=== PATIENT | female | born 1980 | race Caucasian/White ===

== ENCOUNTER 2017-09-20 16:38 | Emergency (ER) | payer SELFPAY ==
[2017-09-20 16:54] VITALS: BP 108/66; PULSE 65; RESP 18; TEMP 98.3; O2SAT 100
--- NOTE | 2017-09-20 21:13 | PD ---
HPI Chief Complaint: Abdominal Pain Time Seen by Provider: 21:13 Travel History International Travel<30 days: No Contact w/Intl Traveler<30days: No Traveled to known affect area: No History of Present Illness HPI 37-year-old female presents emergency department for evaluation right lower abdominal pain. Patient states this woke her up 2 nights ago. It has been constant since then, she rates it a 6 out of 10. She feels as though it is getting worse. Has had soft stool with nausea. No vomiting. Chills without fever. Patient has had 3 C-sections. No other abdominal surgeries. She has had no urinary symptoms. She denies any trauma. She denies any chance of .. No other symptoms to report. [facility] Past Medical History Medical History: Denies Significant Hx ?: Not LMP: 09/11/17 Social History Tobacco Use: No Allergies-Medications (Allergen,Severity, Reaction): Coded Allergies: Penicillins (Verified Allergy, Unknown, 09/20/17) Sulfa (Sulfonamide Antibiotics) (Verified Allergy, Unknown, 09/20/17) Review of Systems Except as stated in HPI: all other systems reviewed are Neg Physical Exam Narrative GENERAL: Well-nourished female patient, no acute distress. SKIN: Focused skin assessment warm/dry. HEAD: Atraumatic. Normocephalic. EYES: Pupils equal and round. No scleral icterus. No injection or drainage. ENT: No nasal bleeding or discharge. Mucous membranes pink and moist. NECK: Trachea midline. No JVD. CARDIOVASCULAR: Regular rate and rhythm. No murmur appreciated. RESPIRATORY: No accessory muscle use. Clear to auscultation. Breath sounds equal bilaterally. GASTROINTESTINAL: Abdomen soft, nondistended. Right lower quadrant tenderness to palpation. Mild guarding. No rebound tenderness. Hepatic and splenic margins not palpable. GENITOURINARY: Normal external genitalia without lesions or erythema. Vaginal vault without blood. There is a yellow white drainage. Cervical os was closed without drainage. No cervical motion tenderness. Uterus nontender and nonenlarged. Bilateral adnexa nontender without masses. MUSCULOSKELETAL: No obvious deformities. No clubbing. No cyanosis. No edema. NEUROLOGICAL: Awake and alert. No obvious cranial nerve deficits. Motor grossly within normal limits. Normal speech. PSYCHIATRIC: Appropriate mood and affect; insight and judgment normal. Data Data Last Documented VS Vital Signs Date Time Temp Pulse Resp B/P (MAP) Pulse Ox O2 Delivery O2 Flow Rate FiO2 09/21/17 01:51 64 15 110/64 (79) 99 09/20/17 16:54 98.3 Orders Orders Beta Hcg (Quant/Titer) (09/20/17 21:26) Complete Blood Count With Diff (09/20/17 21:26) Comprehensive Metabolic Panel (09/20/17:) Lipase (09/20/17:) Prothrombin Time / Inr (Pt) (09/20/17:) Act Partial Throm Time (Ptt) (09/20/17:) Urinalysis - C+S If Indicated (09/20/17:) Ct Abd/Pel W Iv Contrast(Rout) (09/20/17:) Iv Access Insert/Monitor (09/20/17:) Ecg Monitoring (09/20/17:) Oximetry (09/20/17:) Morphine Inj (Morphine Inj) (09/20/17 21:30) Ondansetron Inj (Zofran Inj) (09/20/17 21:30) Sodium Chlor 0.9% 1000 Ml Inj (Ns 1000 M (09/20/17 21:26) Sodium Chloride 0.9% Flush (Ns Flush) (09/20/17 21:30) Ed Urine Pregnancytest Poc (09/20/17 21:26) Oral Contrast - Adult (09/20/17 22:23) Diatrizoate Liq ( Gastroview Liq) (09/20/17 22:33) Iohexol 350 Inj (Omnipaque 350 Inj) (09/21/17 00:43) Ketorolac Inj (Toradol Inj) (09/21/17 01:15) Wet Prep Profile (09/21/17 01:01) Gc And Chlamydia Pcr (09/21/17 01:29) Ed Discharge Order (09/21/17 01:30) Labs Laboratory Tests Test 09/20/17 21:42 09/21/17 01:28 White Blood Count 5.8 TH/MM3 Red Blood Count 4.45 MIL/MM3 Hemoglobin 11.4 GM/DL Hematocrit 34.6 % Mean Corpuscular Volume 77.9 FL Mean Corpuscular Hemoglobin 25.7 PG Mean Corpuscular Hemoglobin Concent 33.0 % Red Cell Distribution Width 14.5 % Platelet Count 237 TH/MM3 Mean Platelet Volume 9.2 FL Neutrophils (%) (Auto) 45.7 % Lymphocytes (%) (Auto) 44.0 % Monocytes (%) (Auto) 6.6 % Eosinophils (%) (Auto) 2.3 % Basophils (%) (Auto) 1.4 % Neutrophils # (Auto) 2.6 TH/MM3 Lymphocytes # (Auto) 2.6 TH/MM3 Monocytes # (Auto) 0.4 TH/MM3 Eosinophils # (Auto) 0.1 TH/MM3 Basophils # (Auto) 0.1 TH/MM3 CBC Comment DIFF FINAL Differential Comment Prothrombin Time 10.0 SEC Prothromb Time International Ratio 1.0 RATIO Activated Partial Thromboplast Time 26.1 SEC Urine Color LIGHT-YELLOW Urine Turbidity CLEAR Urine pH 5.5 Urine Specific [place] 1.017 Urine Protein NEG mg/dL Urine Glucose (UA) NEG mg/dL Urine Ketones 40 mg/dL Urine Occult Blood NEG Urine Nitrite NEG Urine Bilirubin NEG Urine Urobilinogen LESS THAN 2.0 MG/DL Urine Leukocyte Esterase NEG Urine RBC 1 /hpf Urine WBC 2 /hpf Urine Squamous Epithelial Cells 2 /hpf Microscopic Urinalysis Comment CULT NOT INDICATED Blood Urea Nitrogen 11 MG/DL Creatinine 0.77 MG/DL Random Glucose 83 MG/DL Total Protein 7.5 GM/DL Albumin 4.1 GM/DL Calcium Level 8.7 MG/DL Alkaline Phosphatase 61 U/L Aspartate Amino Transf (AST/SGOT) 7 U/L Alanine Aminotransferase (ALT/SGPT) 10 U/L Total Bilirubin 0.3 MG/DL Sodium Level 139 MEQ/L Potassium Level 3.6 MEQ/L Chloride Level 105 MEQ/L Carbon Dioxide Level 25.7 MEQ/L Anion Gap 8 MEQ/L Estimat Glomerular Filtration Rate 83 ML/MIN Lipase 185 U/L Human Chorionic Gonadotropin, Quant LESS THAN 1 MIU/ML Clue Cells (Wet Prep) NONE SEEN Vaginal Trichomonas (Wet Prep) NONE SEEN Vaginal Yeast (Wet Prep) NONE SEEN Chlamydia trachomatis DNA (PCR) NOT DETECTED Neisseria gonorrhoeae DNA (PCR) NOT DETECTED MDM Medical Decision Making Medical Screen Exam Complete: Yes Emergency Medical Condition: Yes Medical Record Reviewed: Yes Differential Diagnosis Appendicitis versus colitis versus diverticulitis versus ectopic versus ovarian torsion Narrative Course 37-year-old female presents emergency department for evaluation right lower quadrant abdominal pain. Patient appears nontoxic. She is treated for pain. She does have right lower quadrant tenderness to palpation with no rebound tenderness. She does have some yellow-white discharge in the vaginal vault. Wet prep is negative. GC PCR is negative. Laboratory Tests Test 09/20/17 21:42 09/21/17 01:28 White Blood Count 5.8 TH/MM3 Red Blood Count 4.45 MIL/MM3 Hemoglobin 11.4 GM/DL Hematocrit 34.6 % Mean Corpuscular Volume 77.9 FL Mean Corpuscular Hemoglobin 25.7 PG Mean Corpuscular Hemoglobin Concent 33.0 % Red Cell Distribution Width 14.5 % Platelet Count 237 TH/MM3 Mean Platelet Volume 9.2 FL Neutrophils (%) (Auto) 45.7 % Lymphocytes (%) (Auto) 44.0 % Monocytes (%) (Auto) 6.6 % Eosinophils (%) (Auto) 2.3 % Basophils (%) (Auto) 1.4 % Neutrophils # (Auto) 2.6 TH/MM3 Lymphocytes # (Auto) 2.6 TH/MM3 Monocytes # (Auto) 0.4 TH/MM3 Eosinophils # (Auto) 0.1 TH/MM3 Basophils # (Auto) 0.1 TH/MM3 CBC Comment DIFF FINAL Differential Comment Prothrombin Time 10.0 SEC Prothromb Time International Ratio 1.0 RATIO Activated Partial Thromboplast Time 26.1 SEC Urine Color LIGHT-YELLOW Urine Turbidity CLEAR Urine pH 5.5 Urine Specific [place] 1.017 Urine Protein NEG mg/dL Urine Glucose (UA) NEG mg/dL Urine Ketones 40 mg/dL Urine Occult Blood NEG Urine Nitrite NEG Urine Bilirubin NEG Urine Urobilinogen LESS THAN 2.0 MG/DL Urine Leukocyte Esterase NEG Urine RBC 1 /hpf Urine WBC 2 /hpf Urine Squamous Epithelial Cells 2 /hpf Microscopic Urinalysis Comment CULT NOT INDICATED Blood Urea Nitrogen 11 MG/DL Creatinine 0.77 MG/DL Random Glucose 83 MG/DL Total Protein 7.5 GM/DL Albumin 4.1 GM/DL Calcium Level 8.7 MG/DL Alkaline Phosphatase 61 U/L Aspartate Amino Transf (AST/SGOT) 7 U/L Alanine Aminotransferase (ALT/SGPT) 10 U/L Total Bilirubin 0.3 MG/DL Sodium Level 139 MEQ/L Potassium Level 3.6 MEQ/L Chloride Level 105 MEQ/L Carbon Dioxide Level 25.7 MEQ/L Anion Gap 8 MEQ/L Estimat Glomerular Filtration Rate 83 ML/MIN Lipase 185 U/L Human Chorionic Gonadotropin, Quant LESS THAN 1 MIU/ML Clue Cells (Wet Prep) NONE SEEN Vaginal Trichomonas (Wet Prep) NONE SEEN Vaginal Yeast (Wet Prep) NONE SEEN Chlamydia trachomatis DNA (PCR) NOT DETECTED Neisseria gonorrhoeae DNA (PCR) NOT DETECTED Lab work is reviewed and without acute concern. Last Impressions Abdomen/Pelvis CT 09/20/172125 Signed Impressions: Service Date/Time: Thursday, September 21, 2017 00:31 - CONCLUSION: 1. No acute inflammatory process. 2. Normal appendix Sanjay Lan MD CT imaging of the abdomen pelvis is also reviewed. I discussed with the patient moving forward with ultrasound to evaluate for torsion however this patient's symptoms do not seem consistent with this.. She states that she would like to go home. She is provided additional pain control. I have encouraged her to return immediately with any acute worsening symptoms. Diagnosis Primary Impression: Abdominal pain Qualified Codes: R10.31 - Right lower quadrant pain Referrals: Assistant Head Cashier Primary Care Physician Patient Instructions: Abdominal Pain (ED), General Instructions Departure Forms: Tests/Procedures, Work Release Enter return to work date: Sep 22, 2017 Additional Instructions: Follow-up with a primary care provider Seek gynecology evaluation Return immediately with acute worsening of symptoms Med/Other Pt SpecificInfo: Prescription(s) given Disposition: 01 DISCHARGE HOME Condition: Stable RichardsDiandra smalls MARCY Sep 20, 2017 21:13
[2017-09-20] MEDS ORDERED: SODIUM CHLOR 0.9% 1000 ML INJ 1,000 ML IV SCH (21:26)
[2017-09-20] MEDS ORDERED: SODIUM CHLORIDE 0.9% FLUSH 10 ML FLUSH IV FLUSH PRN (21:30)
[2017-09-20] MEDS ORDERED: ONDANSETRON HCL 4 MG/2 ML VIAL IVP ONE (21:30)
[2017-09-20] MEDS ORDERED: MORPHINE SULFATE 4 MG/ML INJ IV PUSH ONE (21:30)
[2017-09-20 22:24] LABS: AUTOMATED NEUTROPHIL # 2.6 TH/MM3 (1.8-7.7); BASOPHIL # 0.1 TH/MM3 (0-0.2); BASOPHIL % 1.4 % (0.0-2.0); EOSINOPHIL # 0.1 TH/MM3 (0-0.4); EOSINOPHIL % 2.3 % (0.0-4.0); HEMATOCRIT 34.6 % (35.0-46.0); HEMOGLOBIN 11.4 GM/DL (11.6-15.3); LYMPHOCYTE # 2.6 TH/MM3 (1.0-4.8); MEAN CELL VOLUME 77.9 FL (80.0-100.0); MEAN CORPUSCULAR HEMOGLOBIN 25.7 PG (27.0-34.0); MEAN PLATELET VOLUME 9.2 FL (7.0-11.0); MONO % 6.6 % (0.0-8.0); MONOCYTE # 0.4 TH/MM3 (0-0.9); NEUT % 45.7 % (16.0-70.0); PLATELET COUNT 237 TH/MM3 (150-450); RED BLOOD COUNT 4.45 MIL/MM3 (4.00-5.30); RED CELL DISTRIBUTION WIDTH 14.5 % (11.6-17.2); WHITE BLOOD COUNT 5.8 TH/MM3 (4.0-11.0)
[2017-09-20] MEDS ORDERED: DIATRIZOATE MEGLUM/DIATRIZOATE SOD 9 ML CUP ONE (22:33)
[2017-09-20 22:40] LABS: BILIRUBIN, URINE NEG (NEG); BLOOD, URINE NEG (NEG); GLUCOSE,URINE NEG (NEG); KETONE, URINE 40 mg/dL (NEG); NITRITE,URINE NEG (NEG); PH, URINE 5.5 (5.0-8.5); SQUAMOUS EPITHELIAL CELL URINE 2 /hpf (0-5); URINE COLOR LIGHT-YELLOW (YELLW/STRAW); URINE LEUKOCYTE ESTERASE NEG (NEG)
[2017-09-20 22:45] LABS: ALBUMIN 4.1 GM/DL (3.4-5.0); ALT (GPT) 10 U/L (10-53); AST (GOT) 7 U/L (15-37); BICARBONATE 25.7 MEQ/L (21.0-32.0); BLOOD UREA NITROGEN 11 MG/DL (7-18); CALCIUM 8.7 MG/DL (8.5-10.1); CHLORIDE 105 MEQ/L (98-107); CREATININE 0.77 MG/DL (0.50-1.00); GLOMERULAR FILTRATION RATE 83 ML/MIN (>89); GLUCOSE,RANDOM 83 MG/DL (74-106); SODIUM (NA) 139 MEQ/L (136-145)
[2017-09-20 22:50] LABS: ALKALINE PHOSPHATASE 61 U/L (45-117); TOTAL BILIRUBIN ADULT 0.3 MG/DL (0.2-1.0); TOTAL PROTEIN 7.5 GM/DL (6.4-8.2)
[2017-09-21] MEDS ORDERED: IOHEXOL 350 MG/ML 10 ML VIAL (for RAD DIAG) IVCONTRAST ONE (00:43)
--- NOTE | 2017-09-21 00:57 | RADRPT ---
EXAM DATE/TIME: 09/21/2017 00:31 [place] COMPARISON: No previous studies available for comparison. INDICATIONS : Right lower quadrant pain. IV CONTRAST: 100 cc Omnipaque 350 (iohexol) IV ORAL CONTRAST: Prescribed oral contrast ingested. RADIATION DOSE: 6.57 CTDIvol (mGy) MEDICAL HISTORY : None SURGICAL HISTORY : section. ENCOUNTER: Initial ACUITY: 2 days PAIN SCALE: 8/10 LOCATION: Right lower quadrant TECHNIQUE: Volumetric scanning of the abdomen and pelvis was performed. Using automated exposure control and ad justment of the mA and/or kV according to patient size, radiation dose was kept as low as reasonably achievable to obtain optimal diagnostic quality images. DICOM format image data is available electro nically for review and comparison. FINDINGS: LOWER LUNGS: The visualized lower lungs are clear. LIVER: Homogeneous density without lesion. There is no dilation of the biliary tree. No calcified gall[place] es. SPLEEN: Normal size without lesion. PANCREAS: Within normal limits. KIDNEYS: Normal in size and shape. There is no mass, stone or hydronephrosis. ADRENAL GLANDS: Within normal limits. VASCULAR: There is no aortic aneurysm. BOWEL/MESENTERY: The stomach, small bowel, and colon demonstrate no acute abnormality. There is no free intraperitone al air or fluid. Normal appendix. ABDOMINAL WALL: Within normal limits. RETROPERITONEUM: There is no lymphadenopathy. BLADDER: No wall thickening or mass. REPRODUCTIVE: Within normal limits. INGUINAL: There is no lymphadenopathy or hernia. MUSCULOSKELETAL: Within normal limits for patient age. CONCLUSION: 1. No acute inflammatory process. 2. Normal appendix Sanjay Lan MD on September 21, 2017 at 0:53 Board Certified Radiologist. This report was verified electronically.
[2017-09-21] MEDS ORDERED: KETOROLAC TROMETHAMINE 30 MG/ML (IVP) VIAL IV PUSH ONE (01:15)
[2017-09-21 01:51] VITALS: BP 110/64
== END 2017-09-21 01:52 | disposition home or self-care (01) ==
LOC: NEPD 16:38
DX: R10.31 Right lower quadrant pain (principal); R11.0 Nausea; Z88.0 Allergy status to penicillin; Z88.2 Allergy status to sulfonamides
CPT/HCPCS: 74177; 80053; 81001; 83690; 84702; 84703; 85025; 85610; 85730; 87210; 87491; 87591; 96361; 96374; 96375; 99284; J1885; J2270; J2405; J7030; Q9963; Q9967